=== PATIENT | female | born 1990 | race Caucasian/White ===

== ENCOUNTER 2023-10-04 16:23 | Emergency (ER) | payer MEDICAID, MEDICARE ==
[~2023-10-04] VITALS: Ht 170.2 cm; Wt 55.0 kg
[2023-10-04 16:37] VITALS: O2SAT 100
[2023-10-04 17:47] LABS: BASOPHILS % 0.9 % (0.0-2.0); EOSINOPHILS % 5.1 % (0.0-5.0); HEMATOCRIT. 23.9 % (36.0-48.0); LYMPHOCYTES % 17.4 % (20.0-50.0); MEAN CORPUSCULAR HEMOGLOBIN 15.2 pg (28.0-32.0); MEAN CORPUSCULAR VOLUME 54.1 fL (81.0-99.0); MEAN PLATELET VOLUME 8.6 fl (7.4-10.4); MONOCYTES % 9.1 % (2.0-8.0); NEUTROPHILS % 67.5 % (40.0-76.0); PLATELET 343 x1000/uL (130-400); RED BLOOD CELL COUNT 4.41 mill/uL (4.2-5.4); RED CELL DISTRIBUTION WIDTH 21.3 % (11.6-14.6)
[2023-10-04 18:13] LABS: DIFFERENTIAL COMMENT 1; HEMOGLOBIN. 6.7 g/dL (12.0-16.0)
[2023-10-04 18:14] LABS: ADD RBC MORPHOLOGY YES
[2023-10-04 19:36] LABS: ALANINE AMINOTRANSFERASE 16 IU/L (10-49); ALBUMIN 4.4 g/dL (3.2-4.8); ASPARTATE AMINOTRANSFERASE 18 IU/L (<34); BILIRUBIN TOTAL 0.7 mg/dL (0.1-1.0); CALCIUM 9.3 mg/dL (8.7-10.4); CARBON DIOXIDE 25 mEq/L (21-32); CHLORIDE 104 mEq/L (98-107); CREATININE 0.5 mg/dL (0.6-1.0); GLUCOSE 84 mg/dL (70-105); POTASSIUM 3.3 mEq/L (3.5-5.1); PROTEIN TOTAL 7.3 g/dL (6.0-8.3); SODIUM 136 mEq/L (136-145); UREA NITROGEN BLOOD 7 mg/dL (9-23)
[2023-10-04 20:31] LABS: ANISOCYTOSIS 3+; HYPOCHROMASIA 2+; MICROCYTOSIS 3+; PLATELET ESTIMATE NORMAL
[2023-10-04 21:09] LABS: B-HCG QUANTITATIVE 116207 mIU/mL (<3)
[2023-10-05 06:59] VITALS: BP 94/56; PULSE 61; RESP 13; TEMP 98.4
== END 2023-10-05 07:22 | disposition home or self-care (01) ==
LOC: ER 16:49
DX: O26.891 Other specified pregnancy related conditions, first trimester (principal); D64.9 Anemia, unspecified; Z3A.01 Less than 8 weeks gestation of pregnancy
CPT/HCPCS: 36415; 36430; 80053; 84702; 85025; 86850; 86900; 86920; 93005; 99291; P9016